=== PATIENT | male | born 1940 | race Caucasian/White ===

== ENCOUNTER 2018-09-16 08:43 | Day surgery (SDC) | payer MEDICARE ==
[2018-09-14 15:12] LABS: EOSINOPHILS % (AUTO) 2.1 % (0.0-8.0); HEMATOCRIT 32.1 % (42-54); LYMPHOCYTES % (AUTO) 31.3 % (21.0-51.0); MEAN CORPUSCULAR HEMOGLOBIN 35.9 pg (27.0-33.0); MEAN CORPUSCULAR HGB CONC 33.5 g/dL (32.0-36.0); MEAN CORPUSCULAR VOLUME 107.1 fL (79-99); MONOCYTES % (AUTO) 12.5 % (3.0-13.0); NEUTROPHILS % (AUTO) 52.1 % (40.0-77.0); NUCLEATED RED BLOOD CELLS 0.7 % (0.0-0.19); PLATELET COUNT (AUTO) 159 K/uL (130-400); WHITE BLOOD COUNT (AUTO) 7.2 K/uL (4.8-10.8)
[2018-09-14 15:19] VITALS: BP 129/55
[2018-09-14 15:27] LABS: CREATININE 1.3 mg/dL (0.5-1.5); POTASSIUM 4.4 mmol/L (3.5-5.1)
--- NOTE | 2018-09-15 12:30 | NUR ---
LABS REVIEWED BY DR. PAINTING, NO NEW ORDERS RECEIVED.
[2018-09-16] VITALS (15 sets, daily range): BP systolic 119–135; BP diastolic 56–65
[~2018-09-16] VITALS: Ht 190.5 cm; Wt 130.0 kg
[~2018-09-16 08:43] MED LIST: ASPI-1197 PO; ATOR10 PO; BACITRACIN 28.4 GM OINT TP ONE; BUPIVACAINE/PF 0.25% 30ML VIAL IJ ONE; CEFTRIAXONE SODIUM 1 GM IVP SCH; CHOL200074 PO; CYAN500 PO; FISH1CAP27 PO; LIDOCAINE HCL 1% 20 ML VIAL ONE; LOSA1TAB37 PO; METO100T14 PO; OMEP20CA10 PO; OXYB5TAB10 PO
[2018-09-16] MEDS ORDERED: LACTATED RINGERS 1000ML 1,000 ML IV ONE (09:36)
[2018-09-16] MEDS ORDERED: LIDOCAINE PF 2% 5ML ABBOJECT ONE (09:58)
[2018-09-16] MEDS ORDERED: PROPOFOL 10 MG/ML 20ML VIAL IV ONE (09:58)
[2018-09-16] MEDS ORDERED: MIDAZOLAM HCL 1 MG/ML 2ML VIAL ONE (09:58)
[2018-09-16] MEDS ORDERED: FENTANYL CITRATE PF 50 MCG/1 ML 5ML AMP IV ONE (09:59)
[2018-09-16] MEDS ORDERED: GLYCOPYRROLATE 1 MG/5 ML SYRINGE ONE (10:10)
[2018-09-16] MEDS ORDERED: EPHEDRINE SULFATE 50 MG/ML AMPULE ONE (10:13)
--- NOTE | 2018-09-16 12:20 | NUR ---
NEW RECEIVED PT FROM PACU, S/P CIRCUMCISION , DRESSING TO PENIS DRY AND INTACT, BILATERAL GROIN RASH NOTED. VS STABLE ON ARRIVAL. PT AWAKE AND ALERT IN BED, NO DISTRESS NOTED. DENIES ANY PAIN OR DISCOMFORTS.
--- NOTE | 2018-09-16 12:55 | NUR ---
IVF COMPLETED AT THIS TIME
--- NOTE | 2018-09-16 12:55 | NUR ---
DC DC INSTRUCTIONS GIEVEN TO PT/ SPOUSE WITH RX, INSTRUCTED TO F/U WITH DR. PAINTING, ON NEW MED REGIMEN AND POSSIBLE SIDE EFFECT. TO REMOVE PENIS DRESSING TODAY OR TOMORROW PER MD ORDERS. PIV REMOVED, PT STABLE. PENIS DRESSING DRY AND INTACT,
--- NOTE | 2018-09-16 13:00 | NUR ---
DC PT DC HOME VIA WC,NO DISTRESS NOTED. ACCOMPANIED BY SPOUSE
== END 2018-09-16 13:00 | disposition home or self-care (01) ==
LOC: DAH 08:43
PROVIDERS: ATTEND Urology
DX: N47.1 Phimosis (principal); Z85.46 Personal history of malignant neoplasm of prostate; E78.00 Pure hypercholesterolemia, unspecified; Z79.899 Other long term (current) drug therapy; Z98.890 Other specified postprocedural states; E66.01 Morbid (severe) obesity due to excess calories; I10 Essential (primary) hypertension; K21.9 Gastro-esophageal reflux disease without esophagitis
CPT/HCPCS: 36415; 54150; 80048; 85025; 88304; 93005; A4218; A4351; A4930; J0696; J2001; J2250; J2704; J3010; J3490 ×3; J7120